=== PATIENT | female | born 1975 | race Caucasian/White ===

== ENCOUNTER 2016-07-10 23:02 | Emergency (ER) | payer OTHER ==
[~2016-07-10] VITALS: Ht 147.3 cm; Wt 58.2 kg
[~2016-07-10 23:02] MED LIST: AMBIEN10 MG PO; ANAPROX DS550 MG OR; ATIVAN1 M1 OR; BACTRIM DS1 TAB PO; FLEXERIL OR; MOTRIN800 MG OR; MUPIROCIN2 % EX; PROZAC10 MG PO; REMERON15 MG OR; ULTRAM50 MG OR; VENLAFAXINE37.5 M1 OR; XANAX1 MG PO
[2016-07-11 00:02] LABS: HEMATOCRIT 40.2 % (37.0-47.0); HEMOGLOBIN 13.9 g/dl (12.0-16.0); IMMATURE GRANULOCYTES 0.4 % (0.0-1.0); MEAN CELL VOLUME 89.3 fL CALC (80.0-100.0); MEAN CORPUSCULAR HGB 30.9 pG CALC (26.0-32.0); MEAN CORPUSCULAR HGB CONC 34.6 g/L CALC (32.0-36.0); NEUT# 7.74 thou/uL (2.00-7.15); RED BLOOD COUNT 4.5 mill/uL (4.20-5.60); RED CELL DISTRI WIDTH 11.9 % (11.5-15.5)
[2016-07-11 00:03] LABS: URINE BILIRUBIN - DIPSTICK NEGATIVE (NEGATIVE); URINE BLOOD DIPSTICK NEGATIVE (NEGATIVE); URINE CLARITY SLIGHT CLOUDY; URINE COLOR YELLOW; URINE GLUCOSE - DIPSTICK NEGATIVE (NEGATIVE); URINE KETONE NEGATIVE (NEGATIVE); URINE LEUK ESTERASE NEGATIVE (NEGATIVE); URINE PROTEIN - DIPSTICK NEGATIVE (NEG-TRACE); URINE SPECIFIC GRAVITY 1.015; URINE UROBILINOGEN - DIPSTICK 0.2 E.U./dL (0.2)
[2016-07-11 00:10] LABS: URINE BACTERIA MANY hpf; URINE NITRITE - DIPSTICK POSITIVE (Negative)
[2016-07-11 00:34] LABS: ALKALINE PHOSPHATASE 58 u/l (38-126); ANION GAP 13 (6-22 (CALC)); BILIRUBIN, TOTAL 0.5 mg/dL (0.0-1.4); BUN 11 mg/dL (7-17); BUN/CREATININE RATIO 18 (12-20 (CALC)); CALCIUM 9.9 mg/dL (8.4-10.2); CARBON DIOXIDE 25 mmol/l (22-30); CHLORIDE 105 mmol/l (95-108); CREATININE 0.6 mg/dL (0.5-1.0); GFR > 60 ML/MIN (>=60 (CALC)); GFR FOR AFR.AMER. > 60 ML/MIN (>=60 (CALC)); GLUCOSE 92 mg/dL (65-105); POTASSIUM 4.2 mmol/l (3.5-5.1); SGOT/AST 13 u/l (14-36); SGPT/ALT 26 u/l (9-52); SODIUM 140 mmol/l (137-146)
[2016-07-11] MEDS ORDERED: MACROBID100 MG PO (01:08)
[2016-07-11] MEDS ORDERED: ULTRAM50 M1 PO (01:08)
[2016-07-11 01:46] VITALS: BP 114/67
== END 2016-07-11 01:40 | disposition home or self-care (01) | DRG 690 ==
LOC: ED 23:02
DX: N39.0 Urinary tract infection, site not specified (principal); B96.20 Unspecified Escherichia coli [E. coli] as the cause of diseases classified elsewhere; R10.32 Left lower quadrant pain; R10.31 Right lower quadrant pain

== ENCOUNTER 2016-09-19 04:36 | Emergency (ER) | payer OTHER ==
[~2016-09-19] VITALS: Ht 147.3 cm; Wt 60.8 kg
[~2016-09-19 04:36] MED LIST changes: +MACROBID100 MG PO; +ULTRAM50 M1 PO
[2016-09-19] MEDS ORDERED: LORTAB 10-325 M1 TAB PO (04:58)
[2016-09-19] MEDS ORDERED: BACLOFEN20 MG PO (05:00)
[2016-09-19] MEDS ORDERED: PERCOCET 5/325M1 TAB PO (05:25)
[2016-09-19 06:14] VITALS: BP 154/88
== END 2016-09-19 06:16 | disposition home or self-care (01) | DRG 563 ==
LOC: ED 04:36
PROC: 2W3EX1Z Immobilization of Right Hand using Splint (ICD-10-PCS; principal; 2016-09-19)
DX: S62.316A Displaced fracture of base of fifth metacarpal bone, right hand, initial encounter for closed fracture (principal); F32.9 Major depressive disorder, single episode, unspecified; F41.9 Anxiety disorder, unspecified; F17.210 Nicotine dependence, cigarettes, uncomplicated; Y04.0XXA Assault by unarmed brawl or fight, initial encounter; Y92.410 Unspecified street and highway as the place of occurrence of the external cause